=== PATIENT | female | born 1945 | race Hispanic/Latino ===

== ENCOUNTER 2018-08-09 05:31 | Day surgery (SDC) | payer MEDICARE ==
[2018-08-07 11:07] VITALS: BP 182/81
[2018-08-07 11:07] LABS: BASOPHILS % (AUTO) 1.4 % (0.0-5.0); EOSINOPHILS % (AUTO) 3.4 % (0.0-8.0); HEMATOCRIT 30.9 % (36-48); LYMPHOCYTES % (AUTO) 16.6 % (21.0-51.0); MEAN CORPUSCULAR HEMOGLOBIN 31.4 pg (27.0-33.0); MEAN CORPUSCULAR HGB CONC 33.1 g/dL (32.0-36.0); MEAN CORPUSCULAR VOLUME 94.8 fL (79-99); MONOCYTES % (AUTO) 10.7 % (3.0-13.0); NEUTROPHILS % (AUTO) 67.9 % (40.0-77.0); PLATELET COUNT (AUTO) 128 K/uL (130-400); RED BLOOD CELL COUNT(AUTO) 3.26 MIL/uL (4.00-5.50); RED CELL DISTRIBUTION WIDTH 14.3 % (11.0-15.5); WHITE BLOOD COUNT (AUTO) 2.9 K/uL (4.8-10.8)
[2018-08-07 11:12] LABS: CREATININE 5.6 mg/dL (0.5-1.5); POTASSIUM 4.6 mmol/L (3.5-5.1)
[2018-08-07 11:20] LABS: INR 1.03 (0.85-1.15); PARTIAL THROMBOPLASTIN TIME 31.7 SEC (26.3-35.5); PROTHROMBIN TIME 10.8 SEC (9.6-11.6)
[2018-08-07 12:05] LABS: BASOPHILS % (MANUAL) 1 % (0-2); EOSINOPHILS % (MANUAL) 6 % (1-6); LYMPHOCYTES % (MANUAL) 19 % (22-44); MONOCYTES % (MANUAL) 9 % (2-9); SEGMENTED NEUTROPHILS % 65 % (40-70)
[2018-08-07 12:06] LABS: MAN.DIFF COMMENT-IMPRESSION MANUAL DIFFERENTIAL; PLATELET MORPHOLOGY COMMENT SLIGHTLY DECREASED
--- NOTE | 2018-08-08 09:38 | NUR ---
LABS ABNORMAL WBC, H&H, PLT REPORTED TO DR. Veronika VILLEGAS , NO FURTHER ORDERS GIVEN, OK TO PROCEED WITH PLANNED PROCEDURE
[~2018-08-09] VITALS: Ht 154.9 cm; Wt 69.2 kg
[2018-08-09] VITALS (9 sets, daily range): BP systolic 135–161; BP diastolic 49–74
[~2018-08-09 05:31] MED LIST: ASPI-1181 PO; CINA30 PO; FOLI1TAB85 PO; HYDR-4153 PO; LEVO50TA11 PO; LISI-613 PO; NAPR-1023 PO; OMEP40CA37 PO; SEVE800T27 PO; SIMV10TA6 PO
[2018-08-09] MEDS ORDERED: SODIUM CHLORIDE 0.9% 1000ML 1,000 ML IV ONE (06:05)
[2018-08-09] MEDS ORDERED: IOHEXOL-350 50ML VIAL IV ONE (09:19)
[2018-08-09] MEDS ORDERED: IOHEXOL 350 MG/ML 100ML INFUS..BTL IV ONE (09:19)
[2018-08-09] MEDS ORDERED: HEPARIN SODIUM 1000UNIT/ML 10ML VIAL ONE (09:19)
[2018-08-09] MEDS ORDERED: NITROGLYCERIN 5 MG/ML 10 ML VIAL IV ONE (09:19)
[2018-08-09] MEDS ORDERED: LIDOCAINE HCL 2% 20ML ONE (09:19)
[2018-08-09] MEDS ORDERED: SODIUM BICARB 50MEQ 50ML VIAL ONE (09:32)
[2018-08-09] MEDS ORDERED: NITROGLYCERIN 4.1 GM SPRAY TL ONE (09:37)
[2018-08-09] MEDS ORDERED: MEPERIDINE-PF 25 MG/ML SYG ONE (09:37)
[2018-08-09] MEDS ORDERED: MIDAZOLAM HCL 1 MG/ML 2ML VIAL ONE (09:38)
[2018-08-09] MEDS ORDERED: LABETALOL HCL 5 MG/ML 20ML VIAL IV ONE (09:55)
[2018-08-09] MEDS ORDERED: HYDRALAZINE HCL 20 MG/ML VIAL ONE (10:15)
[2018-08-09] MEDS ORDERED: HYDRALAZINE HCL 20 MG/ML VIAL IV PRN (10:15)
--- NOTE | 2018-08-09 10:30 | NUR ---
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 daughter at bedside. will continue to monitor
--- NOTE | 2018-08-09 14:00 | NUR ---
dc dc instructions given to pts daughter, instructed to f/u with dr. kd mckeon, to continue home meds. right groin dressing dry and intact, no hematoma or bleeding noted. see post cath assessment. pt denies any pain or discomforts.piv removed site asymptomatic, catheter intact, pt will get dress and then gohome with daughter.
--- NOTE | 2018-08-09 14:30 | NUR ---
dc pt dc home via [facility],no distress noted. accompanied by daughter
== END 2018-08-09 14:30 | disposition home or self-care (01) ==
LOC: DAH 05:31
PROVIDERS: ATTEND Internal Medicine Cardiovascular Disease
DX: I25.118 Atherosclerotic heart disease of native coronary artery with other forms of angina pectoris (principal); I12.0 Hypertensive chronic kidney disease with stage 5 chronic kidney disease or end stage renal disease; N18.6 End stage renal disease; Z99.2 Dependence on renal dialysis; E03.9 Hypothyroidism, unspecified; Z98.890 Other specified postprocedural states; Z79.899 Other long term (current) drug therapy; Z79.01 Long term (current) use of anticoagulants
CPT/HCPCS: 36415; 71045; 80048; 85025; 85610; 85730; 93005; 93458; A4606; C1760; C1894; J0360; J1644; J2175; J2250; J3490 ×4; J7030; Q9965; Q9967 ×2; 99156; 99157

== ENCOUNTER → 2019-02-12 | Outpatient (CLI) | payer MEDICARE ==
[~2019-02-12] MED LIST changes: +OMEP40CA13 PO; -OMEP40CA37 PO; -SIMV10TA6 PO; +SIMV10TA97 PO
== END | disposition home or self-care (01) ==
LOC: SHCH 09:38
PROVIDERS: ATTEND Internal Medicine Cardiovascular Disease
DX: Z09 Encounter for follow-up examination after completed treatment for conditions other than malignant neoplasm (principal); I82.811 Embolism and thrombosis of superficial veins of right lower extremity
CPT/HCPCS: 93971

== ENCOUNTER 2020-06-27 08:00 | Day surgery (SDC) | payer MEDICARE ==
[2020-06-25 11:15] LABS: BASOPHILS % (AUTO) 0.6 % (0.0-5.0); EOSINOPHILS % (AUTO) 3.6 % (0.0-8.0); HEMATOCRIT 29.4 % (36-48); LYMPHOCYTES % (AUTO) 11.7 % (21.0-51.0); MEAN CORPUSCULAR HEMOGLOBIN 31.2 pg (27.0-33.0); MEAN CORPUSCULAR HGB CONC 32.7 g/dL (32.0-36.0); MEAN CORPUSCULAR VOLUME 95.5 fL (79-99); MONOCYTES % (AUTO) 12.8 % (3.0-13.0); NEUTROPHILS % (AUTO) 71.1 % (40.0-77.0); PLATELET COUNT (AUTO) 128 K/uL (130-400); RED BLOOD CELL COUNT(AUTO) 3.08 MIL/uL (4.00-5.50); RED CELL DISTRIBUTION WIDTH 14.1 % (11.0-15.5); WHITE BLOOD COUNT (AUTO) 5.3 K/uL (4.8-10.8)
[2020-06-25 11:27] LABS: INR 0.98 (0.85-1.15); PROTHROMBIN TIME 10.7 SEC (9.6-11.6)
[2020-06-25 11:28] LABS: PARTIAL THROMBOPLASTIN TIME 30.2 SEC (26.3-35.5)
[2020-06-25 11:31] LABS: ALBUMIN 3.6 g/dL (3.5-5.0); BILIRUBIN,TOTAL 0.4 mg/dL (0.2-1.0); CREATININE 4.4 mg/dL (0.5-1.5); POTASSIUM 4.6 mmol/L (3.5-5.1); TOTAL PROTEIN, SERUM 7.4 g/dL (6.0-8.3)
[2020-06-26 13:41] VITALS: BP 196/90
[~2020-06-27] VITALS: Ht 154.9 cm; Wt 65.8 kg
[2020-06-27] VITALS (17 sets, daily range): BP systolic 124–190; BP diastolic 51–120
[~2020-06-27 08:00] MED LIST changes: -ASPI-1181 PO; +CEFAZOLIN SODIUM 1 GM VIAL IVP ONE; -CINA30 PO; +FOLI0.8T22 PO; -LISI-613 PO; +LISI20TA24 PO; +METO-408 PO; -NAPR-1023 PO
[2020-06-27] MEDS ORDERED: SODIUM CHLORIDE 0.9% 1000ML 1,000 ML IV ONE (08:47)
[2020-06-27] MEDS ORDERED: CLINDAMYCIN 900 MG/D5% WATER 50 ML IV ONE (08:47)
[2020-06-27] MEDS ORDERED: SUCCINYLCHOLINE CHLORIDE 20 MG/ML 10 ML VIAL ONE (09:59)
[2020-06-27] MEDS ORDERED: KETAMINE 50MG/ML SYRINGE 50 MG/ML DISP.SYRIN IV ONE (09:59)
[2020-06-27] MEDS ORDERED: GLYCOPYRROLATE 1 MG/5 ML SYRINGE ONE (09:59)
[2020-06-27] MEDS ORDERED: DEXAMETHASONE SOD PHOSPHATE 10MG/ML 1ML VIAL ONE (09:59)
[2020-06-27] MEDS ORDERED: LIDOCAINE PF 2% 5ML ABBOJECT ONE (09:59)
[2020-06-27] MEDS ORDERED: ROCURONIUM 10MG/1ML SYR 10 MG/ML ML ONE ×2 (10:00→11:53)
[2020-06-27] MEDS ORDERED: ONDANSETRON HCL 4 MG/2 ML VIAL ONE (10:00)
[2020-06-27] MEDS ORDERED: NEOSTIGMINE 5MG/5ML SYR IV ONE (10:00)
[2020-06-27] MEDS ORDERED: PROPOFOL 10 MG/ML 20ML VIAL IV ONE (10:00)
[2020-06-27] MEDS ORDERED: FENTANYL CITRATE PF 50 MCG/1 ML 2ML VIAL ONE (10:00)
[2020-06-27] MEDS ORDERED: MIDAZOLAM HCL 1 MG/ML 2ML VIAL ONE (10:00)
[2020-06-27] MEDS ORDERED: PHENYLEPHRINE HCL 10 MG/ML 1ML VIAL IV ONE (10:01)
[2020-06-27] MEDS ORDERED: CLINDAMYCIN PHOSPHATE 150 MG/ML 6ML VIAL ONE (10:20)
[2020-06-27] MEDS ORDERED: EPHEDRINE SULFATE 50 MG/ML AMPULE ONE (10:23)
[2020-06-27] MEDS ORDERED: HEPARIN SODIUM 1000UNIT/ML 10ML VIAL ONE (10:52)
[2020-06-27] MEDS ORDERED: ESMOLOL HCL 10 MG/ML 10 ML VIAL ONE ×2 (12:36→13:38)
[2020-06-27] MEDS ORDERED: LABETALOL HCL 5 MG/ML 20ML VIAL IV ONE (13:43)
== END 2020-06-27 16:44 | disposition home or self-care (01) ==
LOC: DAH 08:00
PROVIDERS: ATTEND Thoracic Surgery (Cardiothoracic Vascular Surgery)
DX: N18.6 End stage renal disease (principal); Z20.822 Contact with and (suspected) exposure to COVID-19; I72.1 Aneurysm of artery of upper extremity; I12.0 Hypertensive chronic kidney disease with stage 5 chronic kidney disease or end stage renal disease; K21.9 Gastro-esophageal reflux disease without esophagitis; I44.7 Left bundle-branch block, unspecified; Z79.01 Long term (current) use of anticoagulants; Z88.0 Allergy status to penicillin; Z99.2 Dependence on renal dialysis; Z79.899 Other long term (current) drug therapy; Z98.890 Other specified postprocedural states
CPT/HCPCS: 36415; 36832; 71046; 80053; 85025; 85610; 85730; 86850; 86900; 86901; 93005; A4215; A4221; A4222; A4223; A4452; A4649; A4663; A4930; A6207; A6260; C1713 ×2; C9803; G0168; J0330; J1100; J1644 ×2; J2001; J2250; J2370; J2405; J2704; J2710; J3010; J3490 ×7; J7030 ×2; U0003